=== PATIENT | female | born 1965 | race Caucasian/White ===

== ENCOUNTER 2017-11-27 14:02 | Emergency (ER) | payer SELFPAY ==
[2017-11-27 14:22] VITALS: TEMP 97
--- NOTE | 2017-11-27 15:39 | CT ---
Procedure: CT ABDOMEN PELVIS WITH IV CONTRAST Exam Date: 11/27/2017 Ordering Provider: Edinson Thompson Clinical Indication: rlq pain Comparison: None TECHNIQUE: 5 mm images were taken through the abdomen and pelvis after the administration of nonionic intravenous contrast material. Oral contrast was not administered. Coronal and sagittal reformatted images were generated. This exam was performed according to our departmental dose optimization program which includes use of automated exposure control, adjustment of the mA and/or kV according to patient size and/or use of iterative reconstruction technique. FINDINGS: Lower chest: Nonacute Abdomen: Liver and biliary system: Unremarkable. No calcified gallstones. Spleen: Unremarkable Pancreas: Unremarkable Adrenal glands: Unremarkable Kidneys, ureters, bladder: No hydronephrosis in either kidney. Ureters and bladder are unremarkable. Lymph nodes: No lymphadenopathy Retroperitoneum, abdominal wall, peritoneal cavity: No ascites. No free intraperitoneal air. Vessels: No abdominal aortic aneurysm. Retroaortic left renal vein. Pelvis: Lymph nodes: No lymphadenopathy Bowel: No evidence of acute appendicitis. Suggested lipomatosis of the ileocecal valve. There is fatty infiltration of a long segment of the colonic submucosa which is nonspecific but most commonly seen with obesity and inflammatory bowel disease. No bowel obstruction. There is stricture-like narrowing of the transverse colon. Pelvic organs: Unremarkable Bones: Nonacute IMPRESSION: 1.There is fatty infiltration of a long segment of the colonic submucosa which is nonspecific but most commonly seen with obesity and inflammatory bowel disease. There is stricture-like narrowing of the transverse colon. No bowel obstruction. 2. Suggested lipomatosis of the ileocecal valve. Electronically signed by: Neal Sánchez MD 11/27/2017 3:38 PM CDT
[2017-11-27] MEDS ORDERED: methylPREDNISolone SODIUM SUC 125 MG/2 ML VIAL IV ONE (15:48)
[2017-11-27] MEDS ORDERED: SODIUM CHLORIDE 0.9% 1000ML 1,000 ML IVS ONE (15:48)
[2017-11-27] MEDS ORDERED: MAGNESIUM HYDROXIDE 30 ML UD PO ONE (15:48)
--- NOTE | 2017-11-27 15:52 | ED.PDOC ---
History of Present Illness - General Chief Complaint: Abdominal Pain Stated Complaint: ABDOMINAL PAIN Time Seen by Provider: 11/27/17 14:34 Source: patient Exam Limitations: no limitations - History of Present Illness Initial Comments: the patient is a 52-year-old female presenting to emergency room secondary to isolated right lower quadrant pain starting approximately 2 days ago.she has had some mild diarrhea. Pain is located in the right lower quadrant. No definite rebound but there is tenderness there. The patient was referred from [place] with Dr. Avery for a CT scan for possible appendicitis, and surgical intervention at that ended up being the case. No fevers. No vomiting. No syncope or near syncope. No previous episodes like this. No family history of any Crohn's disease or ulcerative colitis. No blood in the stools. No vomiting. Timing/Duration: unsure Severity: moderate Improving Factors: nothing Worsening Factors: nothing Allergies/Adverse Reactions: Allergies Codeine Allergy (Verified 11/27/17 14:10) Penicillins Allergy (Verified 11/27/17 14:09) Review of Systems - Review of Systems Constitutional: States: no symptoms reported EENTM: States: no symptoms reported Respiratory: States: no symptoms reported Cardiology: States: no symptoms reported Gastrointestinal/Abdominal: States: abdominal pain, diarrhea - very mild Genitourinary: States: no symptoms reported Musculoskeletal: States: no symptoms reported Skin: States: no symptoms reported Neurological: States: no symptoms reported Endocrine: States: no symptoms reported All other Systems: No Change from Baseline Past Medical History (General) - Patient Medical History Hx Cardiac Disorders: Yes - NSTEMI Hx Hypertension: Yes Hx Diabetes: No Surgical History: no surgical history - Vaccination History Hx Tetanus, Diphtheria Vaccination: Yes - Social History Hx Alcohol Use: Yes Family Medical History - Family History Mother Family History: No Known Physical Exam - Physical Exam General Appearance: Alert, No apparent distress Eye Exam: bilateral normal Ears, Nose, Throat: hearing grossly normal, normal ENT inspection, normal pharynx Neck: full range of motion, supple Respiratory: lungs clear, normal breath sounds, no respiratory distress, no accessory muscle use Cardiovascular/Chest: normal peripheral pulses, regular rate, rhythm, no edema Peripheral Pulses: radial,right: 2+, radial,left: 2+, dorsalis pedis,right: 2+, dorsalis pedis,left: 2+ Gastrointestinal/Abdominal: soft, other - right lower quadrant discomfort to palpation. No skin changes. No palpable mass. 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 Source is not entirely certain but she does have significant constipation. She is going to be written for a gallon of GoLYTELY to take over the next 24 hours. Should get her cleaned out and certainly if the constipation is causing the pain that should take care of the issue. The patient is additionally going to be written for prednisone 40 mg a day for the next 5 days. She did have changes on her CT scan that could possibly be consistent with inflammatory bowel disease. I do recommend she talk with her primary care doctor about getting set up with a nuclear fuels research engineer for a lower endoscopy. I also recommend she follow up with her primary care doctor tomorrow or first thing next week for reevaluation. Laboratory work and CT scan were otherwise reassuring. ER warnings were given. - Results/Orders Results/Orders: CBC and CMP from outside hospital are largely unremarkable. Urinalysis is unremarkable. X-ray of the abdomen shows constipation. CT scan abdomen and pelvis done here with IV contrast shows no evidence of any appendicitis or diverticulitis. She does have stricturing of the transverse colon. No obstruction. She does have fatty infiltration of the cecum and ileocecal valve that can sometimes be seen with inflammatory bowel disease. Departure - Departure Clinical Impression: Abdominal pain Qualifiers: Abdominal location: right lower quadrant Qualified Code(s): R10.31 - Right lower quadrant pain Constipation Qualifiers: Constipation type: unspecified constipation type Qualified Code(s): K59.00 - Constipation, unspecified Disposition: Discharge to Home or Self Care Condition: Fair Departure Forms: ED Discharge - Pt. Copy, Patient Portal Self Enrollment Diet: other - high-fiber and increase fluid intake Activity: increase activity as tolerated Referrals: ANNEMARIE AVERY [Primary Care Provider] - 1-5 Days Additional Instructions: the patient is a 52-year-old female presenting to emergency room secondary to right lower quadrant pain. Source is not entirely certain but she does have significant constipation. She is going to be written for a gallon of GoLYTELY to take over the next 24 hours. Should get her cleaned out and certainly if the constipation is causing the pain that should take care of the issue. The patient is additionally going to be written for prednisone 40 mg a day for the next 5 days. She did have changes on her CT scan that could possibly be consistent with inflammatory bowel disease. I do recommend she talk with her primary care doctor about getting set up with a nuclear fuels research engineer for a lower endoscopy. I also recommend she follow up with her primary care doctor tomorrow or first thing next week for reevaluation. Laboratory work and CT scan were otherwise reassuring. ER warnings were given.
[2017-11-27 16:46] VITALS: BP 164/104; O2SAT 98
== END 2017-11-27 16:47 | disposition home or self-care (01) ==
LOC: ER 14:02
DX: K59.00 Constipation, unspecified (principal); R10.31 Right lower quadrant pain; R19.7 Diarrhea, unspecified; I10 Essential (primary) hypertension; I25.2 Old myocardial infarction; Z88.5 Allergy status to narcotic agent; Z88.0 Allergy status to penicillin
CPT/HCPCS: 74177; J2930